=== PATIENT | male | born 1990 | race Caucasian/White ===

== ENCOUNTER 2017-12-19 22:13 | Emergency (ER) | payer SELFPAY ==
[~2017-12-19] VITALS: Ht 188 cm; Wt 145.1 kg
--- OUTSIDE RECORDS SUMMARY | 2017-12-19 22:16 | XMS REPORT ---
Author Author [facility] Address Unknown Phone Unavailable Care Team Providers Care Kettle Chipper Name Role Phone CATHLEEN MEREDITH Unavailable Unavailable Problems This patient has no known problems. Allergies, Adverse Reactions, Alerts This patient has no known allergies or adverse reactions. Medications This patient has no known medications. Results Test Description Test Time Test Comments Text Results Atomic Results Result Comments Stress Test - Treadmill ONLY [place] [address] Patient Name : SERENA WHITT MR #: [id number] : 1990 Age/Sex: 27/M Adm Physician : CATHLEEN MEREDITH MD Admit Date : 07/05/17 Location : [facility] Room/Bed : [place] [address] REPORT: Cardiology Report DATE OF STUDY: July 06, 2017 STRESS TEST PROCEDURE INDICATION: Heart failure. INTERPRETATION : Resting heart rate 65. Blood pressure 149/87. Resting EKG: Normal sinus rhythm. Normal EKG. STRESS DATA: After Lexiscan was administered, the heart rate increased to 95 beats per minute and blood pressure decreased to 136/68. There were no significant ST changes or arrhythmias throughout stress or recovery. Myocardial perfusion reveals apical inferior, small size , moderate severity, fixed rest and stress perfusion defect and a basal to mid inferior stress-induced mild perfusion defect of small size. Gated images demonstrate global mild impairment of left ventricular systolic function with left ventricular ejection fraction of 45% and global hypokinesis. CONCLUSIONS 1. Normal hemodynamic response to Lexiscan stress. 2. Normal electrocardiographic response to Lexiscan stress. 3. Abnormal myocardial perfusion with small mixed nontransmural apical inferior segment scar with smalll basal to mid inferior mild ischemia. 4. Cardiomyopathy with left ventricular ejection fraction of 45% and global hypokinesis of mild severity. Job#: [id number] Signature Date Dictated By: APRYL BOLDEN MD Transcribed By: SMEDS on 07/07/17 <Electronically signed by APRYL BOLDEN MD><<Signature on File>>07/08/17917 COPY TO: CT SOFT TISSUE NECK W [place] [address] Patient Name: SERENA WHITT MR #: [id number] : 1990 Age/Sex: 27/M Req #: [id number] [facility] Physician: CATHLEEN MEREDITH MD Ordered by: CATHLEEN MEREDITH MD Report #: [id number] Location: [facility] Room/Bed: [place] [address] _ Procedure: [id number] CT/CT SOFT TISSUE NECK W Exam Date: 07/06/17 Exam Time: 0840 REPORT STATUS: Signed Exam: Soft tissue neck CT with IV contrast. History: Left-sided jaw and neck pain x5 days.? Tooth abscess. Comparison studies: None Technique: Axial, coronal and sagittal images from the skull base to the thoracic inlet. Coronal and sagittal images reconstructed from the axial data. Intravenous contrast: 100 cc of Omnipaque 300. Findings: Dentition: Root canal changes at the left first maxillary molar. The left first maxillary molar as well as carious left second and third maxillary molars are with peripheral lucencies additional dental caries with periapical lucency at the right third maxillary molar. Soft tissues: No soft tissue inflammatory changes or soft tissue abscess. Masses: None. Lymph nodes: Mildly enlarged reactive left suprahyoid jugular chain lymph nodes, largest of which measures 1.8 cm. Otherwise, no radiographically significant cervical adenopathy. Vessels: Cannot adequately evaluate due to IV contrast bolus timing. Paranasal sinuses: Left ostiomeatal unit obstruction with opacified left maxillary sinus, anterior ethmoids and left frontal sinus. There is mild mucosal thickening along the right maxillary sinus alveolar recess and opacified right middle ethmoid air cells. The remaining paranasal sinuses are clear. Glands (parotid and submandibular): Normal in size and symmetric. No masses. Orbits: No abnormalities. Paranasal sinuses: Clear. Temporal bones: No abnormalities. Skull base and facial bones: Intact. Cervical spine: Straightened cervical curvature may be positional. IMPRESSION: 1. Root canal changes at the left first maxillary molar with periapical lucency as well as carious left second and third maxillary molars with periapical lucencies. Can correlate clinically to determine if any of these findings reflect active periapical abscesses. 2. No soft tissue inflammatory changes or soft tissue abscess. 3. Mildly enlarged reactive left infrahilar jugular chain lymph nodes. 4. Inflammatory changes in the paranasal sinuses with left ostiomeatal unit obstruction. Signed by: Dr. Trish Richard M.D. on 07/06/2017 9:28 AM Dictated By: TRISH RICHARD MD 7 Transcribed By: HEIDI on 07/06/17927 COPY TO: CATHLEEN MEREDITH MD [facility] [place] [address] Patient Name: SERENA WHITT MR #: [id number] : 1990 Age/Sex: 27/M Req #: [id number] Adm Physician: Ordered by: EBONY SALAZAR MD Report #: [id number] Location: ER Room/Bed: Procedure: [id number] DX/CHEST SINGLE (PORTABLE) Exam Date: 07/05/17 Exam Time: 1145 REPORT STATUS: Signed EXAMINATION: Chest, CHEST SINGLE (PORTABLE) INDICATION: Chest pain COMPARISON: None FINDINGS: LINES: None. Heart: Normal cardiac silhouette. Vascular: The pulmonary vasculature is within normal limits. Mediastinum: No mediastinal, hilar, or axillary mass or lymphadenopathy. Lungs: No parenchymal mass. No focal consolidation. Bibasilar atelectasis. Pleura: No pleural effusion. No pneumothorax. Bones: No acute osseous abnormality. Soft tissues: Normal. Impression: No acute radiographic abnormality. Signed by: Dr. Mariana Banks M.D. on 07/05/2017 11: 58 AM Dictated By: MARIANA BANKS MD 1158 Transcribed By: HEIDI on 07/05/17 1158 COPY TO: EBONY SALAZAR MD
[2017-12-19] MEDS ORDERED: TETANUS/DIPHTHERIA TOX ADULT 0.5 ML SYR IM ONE (22:30)
[2017-12-19] MEDS ORDERED: CLINDAMYCIN PHOS 600 MG/ 4 ML VIAL IM ONE (23:15)
[2017-12-19] MEDS ORDERED: HYDROCODONE/APAP 5MG-325MG TAB PO ONE (23:15)
== END 2017-12-19 23:20 | disposition home or self-care (01) ==
LOC: FSED 22:13
DX: S61.012A Laceration without foreign body of left thumb without damage to nail, initial encounter (principal); W26.0XXA Contact with knife, initial encounter; Y92.008 Other place in unspecified non-institutional (private) residence as the place of occurrence of the external cause; F17.210 Nicotine dependence, cigarettes, uncomplicated
CPT/HCPCS: 90714; 99283

== ENCOUNTER 2017-12-22 17:30 | Emergency (ER) | payer SELFPAY ==
[~2017-12-22] VITALS: Ht 188 cm; Wt 140.6 kg
--- OUTSIDE RECORDS SUMMARY | 2017-12-22 17:32 | XMS REPORT | Continuity of Care Document ---
Author Author [facility] Organization [facility] Address [address] [place] [address] Phone Unavailable Care Team Providers Care Commercial Energy Auditor Name Role Phone NO, PCP PCP Unavailable Advance Directives Directive Response Recorded Date/Time Does the patient have an advance directive? No 07/05/17 7:36pm If yes, is advance directive on file with [facility]? No 07/05/17 7:36pm If not on file with [facility] will patient provide a copy? No 07/05/17 7:36pm Problems Medical Problem Onset Date Status Chest pain Unknown Medications No known medications. Social History Social History Problem Response Recorded Date/Time Onset Date Status Hx Psychiatric Problems No 07/05/2017 7:36pm Not Applicable Not Applicable Hx Eating Disorder No 07/05/2017 7:36pm Not Applicable Not Applicable Hx Substance Use Disorder No 07/05/2017 7:36pm Not Applicable Not Applicable Hx Depression No 07/05/2017 7:36pm Not Applicable Not Applicable Hx Alcohol Use Y - 6 drinks per week 07/05/2017 7:36pm Not Applicable Not Applicable Hx Substance Use Treatment No 07/05/2017 7:36pm Not Applicable Not Applicable Hx Physical Abuse No 07/05/2017 7:36pm Not Applicable Not Applicable Smoking Status Start Date Stop Date Current every day smoker Hospital Discharge Instructions No hospital discharge instruction information available. Plan of Care Discharge Date 12/19/17 11:20pm Disposition HOME, SELF-CARE Condition at Discharge Improved Instructions/Education Provided Laceration Forms Provided Work/School Excuse Prescriptions See Medication Section Additional Instructions/Education Discussed with patient wound care after laceration repair with recheck in 3-4 days and suture removal in 10 days. WATCH for signs of infection with drainage, fever, swelling. Follow up in HOSPITAL ER if problems occur. ED warnings given Functional Status No functional status information available. Allergies, Adverse Reactions, Alerts Allergen Type Severity Reaction Status Last Updated PENICILLIN Allergy Intermediate Active 07/05/17 Immunizations No immunization information available. Vital Signs Acute Vital Signs Vital Response Date/Time Temperature (Fahrenheit) 96.4 degrees F (97.6 - 99.5) 07/07/2017 4:00pm Pulse Pulse Rate (adult) 65 bpm (60 - 90) 07/07/2017 4:00pm Respiratory Rate 20 bpm (12 - 24) 07/07/2017 4:00pm Blood Pressure 145/80 mm Hg 07/07/2017 4:00pm Height 6 ft 2 in 12/19/2017 10:15pm Weight 320 lb 12/19/2017 10:15pm Body Mass Index 41.1 kg/m^2 12/19/2017 10:15pm Results Laboratory Results Test Name Result Units Flags Reference Collection Date/Time Result Date/ Time Comments White Blood Count 7.74 x10e3/uL 4.8-10.8 07/05/2017 11:37am 07/05/2017 11:52am Red Blood Count 5.05 x10e6/uL 4.3-5.7 07/05/2017 11:37am 07/05/2017 11: 52am Hemoglobin 15.2 g/dL 14.0-18.0 07/05/2017 11:37am 07/05/2017 11:52am Hematocrit 44.2 % 38.2-49.6 07/05/2017 11:37am 07/05/2017 11:52am Mean Corpuscular Volume 87.5 fL 81-99 07/05/2017 11:37am 07/05/2017 11: 52am Mean Corpuscular Hemoglobin 30.1 pg 28-32 07/05/2017 11:37am 2016 11:52am Mean Corpuscular Hemoglobin Concent 34.4 g/dL 31-35 07/05/2017 11:37am 07/05/2017 11:52am Red Cell Distribution Width 13.6 % 11.7-14.4 07/05/2017 11:37am 2016 11:52am Platelet Count 147 x10e3/uL 140-360 07/05/2017 11:37am 07/05/2017 11: 52am Neutrophils (%) (Auto) 64.4 % 38.7-80.0 07/05/2017 11:37am 07/05/2017 11:52am Lymphocytes (%) (Auto) 24.7 % 18.0-39.1 07/05/2017 11:37am 07/05/2017 11:52am Monocytes (%) (Auto) 9.4 % 4.4-11.3 07/05/2017 11:37am 07/05/2017 11: 52am Eosinophils (%) (Auto) 0.9 % 0.0-6.0 07/05/2017 11:37am 07/05/2017 11: 52am Basophils (%) (Auto) 0.5 % 0.0-1.0 07/05/2017 11:37am 07/05/2017 11: 52am IM GRANULOCYTES % 0.1 % 0.0-1.0 07/05/2017 11:37am 07/05/2017 11:52am Neutrophils # (Auto) 5.0 2.1-6.9 07/05/2017 11:37am 07/05/2017 11: 52am Lymphocytes # (Auto) 1.9 1.0-3.2 07/05/2017 11:37am 07/05/2017 11: 52am Monocytes # (Auto) 0.7 0.2-0.8 07/05/2017 11:37am 07/05/2017 11:52am Eosinophils # (Auto) 0.1 0.0-0.4 07/05/2017 11:37am 07/05/2017 11: 52am Basophils # (Auto) 0.0 0.0-0.1 07/05/2017 11:37am 07/05/2017 11:52am Absolute Immature Granulocyte (auto 0.01 x10e3/uL 0-0.1 07/05/2017 11: 37am 07/05/2017 11:52am Urine Color YELLOW YELLOW 07/05/2017 1:29pm 07/05/2017 2:17pm Urine Clarity CLEAR CLEAR 07/05/2017 1:29pm 07/05/2017 2:17pm Urine Specific [place] 1.025 1.010-1.025 07/05/2017 1:2016 2:17pm Urine pH 5 5 - 7 07/05/2017 1:07/05/2017 2:17pm Urine Leukocyte Esterase TRACE H NEGATIVE 07/05/2017 1:2016 2:17pm Urine Nitrite NEGATIVE NEGATIVE 07/05/2017 1:07/05/2017 2:17pm Urine Protein TRACE H NEGATIVE 07/05/2017 1:07/05/2017 2:17pm Urine Glucose (UA) NEGATIVE NEGATIVE 07/05/2017 1:07/05/2017 2: 17pm Urine Ketones 1+ H NEGATIVE 07/05/2017 1:07/05/2017 2:17pm Urine Urobilinogen 0.2 mg/dL 0.2 - 1 07/05/2017 1:07/05/2017 2: 17pm Urine Bilirubin NEGATIVE NEGATIVE 07/05/2017 1:07/05/2017 2: 17pm Urine Blood NEGATIVE NEGATIVE 07/05/2017 1:07/05/2017 2:17pm Urine WBC 6-10 /HPF H 0-5 07/05/2017 1:07/05/2017 2:21pm Urine RBC 0-5 /HPF 0-5 07/05/2017 1:07/05/2017 2:21pm Urine Bacteria FEW /HPF NONE 07/05/2017 1:07/05/2017 2:21pm Urine Epithelial Cells FEW /LPF NONE 07/05/2017 1:07/05/2017 2: 21pm Sodium Level 142 mmol/L 136-145 07/05/2017 11:37am 07/05/2017 12:02pm Potassium Level 3.6 mmol/L 3.5-5.1 07/05/2017 11:3707/05/2017 12: 02pm Chloride Level 108 mmol/L H 98-107 07/05/2017 11:37am 07/05/2017 12: 02pm Carbon Dioxide Level 24 mmol/L 07/05/2017 11:37am 07/05/2017 12: 02pm Anion Gap 13.6 mmol/L 06-0307/05/2017 11:37am 07/05/2017 12:02pm Blood Urea Nitrogen 10 mg/dL 05-1307/05/2017 11:37am 07/05/2017 12: 02pm Creatinine 0.70 mg/dL L 0.72-1.25 07/05/2017 11:37am 07/05/2017 12:02pm BUN/Creatinine Ratio 14 6-25 07/05/2017 11:37am 07/05/2017 12:02pm Estimat Glomerular Filtration Rate > 60 ML/MIN 60- 07/05/2017 11:37am 07/05/2017 12:02pm Ranges were taken from the National Kidney Disease Education Program and the National [employer] literature. Reference ranges: 60 or greater: Normal 16-59 (for 3 consecutive months): Chronic kidney disease 15 or less: Kidney failure Glucose Level 100 mg/dL 74-118 07/05/2017 11:37am 07/05/2017 12:02pm Calcium Level 8.6 mg/dL 8.4-10.2 07/05/2017 11:37am 07/05/2017 12:02pm Triglycerides Level 79 MG/DL 0-149 07/06/2017 3:47am 07/06/2017 5:12am Cholesterol Level 187 MD/DL 0-199 07/06/2017 3:47am 07/06/2017 5:12am Less than 200 mg/dL Low Risk 201 - 239 mg/dL Borderline Risk 240 mg/dl and greater High Risk LDL Cholesterol 123 MG/DL 60-130 07/06/2017 3:47am 07/06/2017 5:12am HDL Cholesterol 48 MG/DL 40-60 07/06/2017 3:47am 07/06/2017 5:12am Cholesterol/HDL Ratio 3.9 3.9-4.7 07/06/2017 3:47am 07/06/2017 5: 12am B-Type Natriuretic Peptide < 10.0 pg/mL 0-100 07/05/2017 7:40pm 2016 8:21pm Creatine Kinase 151 IU/L 30-200 07/06/2017 3:47am 07/06/2017 5:12am Creatine Kinase MB < 1.00 ng/mL 0-4.3 07/06/2017 3:47am 07/06/2017 4: 41am Troponin I < 0.05 ng/mL 0.0-0.40 07/06/2017 3:47am 07/06/2017 4:41am Procedures Procedure Status Date Provider(s) Computed tomography of soft tissues of neck with contrast Active 07/06/17 CATHLEEN MEREDITH MD Encounters Encounter Location Arrival/Admit Date Discharge/Depart Date Attending Provider Departed Emergency Room [facility] 12/19/17 10:13pm 12/19 11:20pm CHELSEY WALKER MD Discharged Inpatient (obs) [facility] 07/05/17 1:52pm 6:15pm CATHLEEN MEREDITH MD
[2017-12-22] MEDS ORDERED: IBUPROFEN400 MG PO (18:11)
[2017-12-22 18:28] VITALS: BP 146/70
== END 2017-12-22 18:20 | disposition home or self-care (01) ==
LOC: FSED 17:30
DX: Z48.01 Encounter for change or removal of surgical wound dressing (principal)
CPT/HCPCS: 99282